=== PATIENT | female | born 1980 | race Caucasian/White ===

== ENCOUNTER 2018-08-07 22:20 | Inpatient (IN) | payer MEDICARE, MEDICAID, SELFPAY ==
[2018-08-07 23:00] VITALS: BP 131/62; PULSE 108; RESP 24; TEMP 36.9; O2SAT 98
--- NOTE | 2018-08-07 23:19 | PC.NURSE ---
2250 - Pt to room transfer to bed via slider board. Alert oriented. Oriented to room and routine. IVF and gtt stopped upon arrival, (incompatible tubing) BG check 95. Pt denies s/s of hypoglycemia. Not yet. MACHINE ATTENDANT, Deandra, notified of pt arrival. Pt connected to granite cutter. Tachycardic in the 110's. IV to left foot and double lumen PICC to RUE. Call light in reach.
[2018-08-07] MEDS: DEXTROSE 50 % IN WATER 25 GM/50 ML SYRINGE IV (23:35)
--- NOTE | 2018-08-07 23:47 | PM.HP.1 ---
History of Present Illness Date Patient Seen: 08/07/18 Time Patient Seen: 23:47 Chief complaint: DKA Narrative: HPI is obtained via direct patient interview. The patient is a 38 year old female w/ PMHx of DM 1T, diabetic neuropathy, Grave's disease (s/p total thyroidectomy), hypothyroidism, SVT (s/p ablation), CHB (s/p PPM implantation, 2017), CHF, dyslipidemia, prior h/o PE/DVT, GERD, psychiatric illness (anxiety, depression, PTSD). Patient presents as transfer from [facility]. Patient presented to the outside facility earlier in the day w/ complaints of generalized malaise, fatigue, nausea, vomiting (12+ times), and abdominal discomfort. Associated symptoms of tachypnea and dizziness / lightheadedness with position change. Patient felt she was in DKA. Repots symptoms to be similar to prior episodes of DKA. Symptoms onset is acute, initially noted 3 days ago by report. Symptoms progressively worsening. Reports neglecting self in an effort to take care of her father who recently returned home from prolonged illness / rehab. Denies fever, chills, confusion / disorientation, change in vision, URI symptoms, or CP. Reports being diagnosed with a tooth infection 2-3 weeks ago for which she was prescribed a course of clindamycin. [facility] presentation and work-up Labs, 08/07 @ 1530 WBC 8.2 Hgb 13.1 Hct 39.6 Plt Na 129 K 4.9 Cl 95 Ca 8.5 CO2 10 AG 24 BUN 18 Cr 1.2 GFR 50 GLU 471 AST 19 ALT 16 Alk Phos 168 T. Bili 2.0 Lipase 20 Trop 0.04 CXR, 08/07/2018 @ 2024. No focal opacities. No pleural effusion. No pneumothorax. Cardiomediastinal contour is normal. Right PICC w/ tip over SVC. EKG, A-V paced rhythm (rate 109) Treated w/ (prior to transfer) 2L NS, insulin Patient was a difficult stick, PICC line was placed on 08/07/2018. Patient History Medical History (Updated 08/08/18 @ 00:46 by BOLA Reyes) Anxiety and depression (Chronic) Diabetic neuropathy (Chronic) Pacemaker (Chronic) Post-surgical hypothyroidism (Chronic) Type I diabetes mellitus (Chronic) History of DVT (deep vein thrombosis) (Resolved) History of pericarditis (Resolved) History of pulmonary embolism (Resolved) SVT (supraventricular tachycardia) (Resolved) Surgical History (Updated 08/08/18 @ 00:46 by BOLA Reyes) History of appendectomy (Resolved) History of cholecystectomy (Resolved) History of repair of hiatal hernia (Resolved) History of right oophorectomy (Resolved) Social History household members: family alcohol intake: former Family & Social History Social History: Disabled / does not work. Lives with father. Father's primary caregiver. No children. Tobacco & Substance use: THC use 2-3 times per week. Meds Home Medications Medication Instructions Recorded Confirmed Type Lantus U-100 Insulin 32 unit SQ QDAY #0 09/26/15 08/08/18 History atorvastatin [Lipitor] 80 mg PO QDAY #0 09/26/15 08/08/18 History lisinopril 10 - 20 mg PO BID #0 09/26/15 08/08/18 History lorazepam 0.5 - 1 mg PO Q6HP PRN #0 09/26/15 08/08/18 History venlafaxine [Effexor XR] 150 mg PO QDAY #0 09/26/15 08/08/18 History Basaglar KwikPen U-100 Insulin 25 unit SQ BID #0 04/24/16 08/08/18 History levothyroxine [Levoxyl] 250 mcg PO QDAY #0 04/25/16 08/08/18 History Apidra SoloStar U-100 Insulin 15 unit SQ TID #0 10/08/16 08/08/18 History Eliquis 5 mg PO BID #0 10/08/16 08/08/18 History Lantus U-100 Insulin 20 unit SQ QPM #0 10/08/16 08/08/18 History Novolog PenFill U-100 Insulin SLIDE #0 10/08/16 History amitriptyline 50 mg PO HS #0 10/08/16 08/08/18 History digoxin [Lanoxin] 0.25 mg PO QDAY #0 10/08/16 08/08/18 History furosemide 80 mg PO QDAY #0 10/08/16 08/08/18 History gabapentin [Neurontin] 600 mg PO Q8H #0 10/08/16 08/08/18 History metoprolol succinate 100 mg PO BID #0 10/08/16 08/08/18 History spironolactone 25 mg QDAY #0 10/08/16 08/08/18 History Allergies Allergy/AdvReac Type Severity Reaction Status Date / Time trimethoprim [From BACTRIM] Allergy Severe Difficulty Verified 08/08/18 02:31 Breathing amoxicillin [AMOXICILLIN] Allergy Intermediate Difficulty Verified 08/08/18 00:46 Breathing sulfamethoxazole Allergy Intermediate Difficulty Verified 08/08/18 00:46 [From BACTRIM] Breathing adhesive tape [ADHESIVE TAPE] Allergy Mild Verified 08/08/18 02:33 oxycodone [OXYCODONE] Allergy Mild Vomiting Verified 08/08/18 00:46 promethazine [PROMETHAZINE] Allergy Mild Vomiting Verified 08/08/18 02:34 Penicillins [PENICILLINS] Allergy Unknown Verified 08/08/18 02:35 Review of Systems Review of Systems All systems reviewed & are unremarkable except as noted in HPI and below Exam Narrative Exam Narrative: Constitutional: NAD Neurologic: AOx3, no focal neurological deficits Head: NC, AT Eyes: PERRL, EOMI, Ears: external ears normal, no otorrhea Nose: external nose normal, no rhinorrhea or epistaxis Throat: DRY MM, oropharynx w/o exudate Neck: no masses, lymphadenopathy, or JVD Chest / Respiratory: equal chest rise, unlabored respiratory effort, no tachypnea, diminished b/l Heart / CV: S1S2, tachycardic on the monitor (rate 116) Abdomen / GI: round, NT, ND, + BS, no organomegaly : no suprapubic tenderness, no CVA Peripheral / Vascular: warm to touch, DP and PT pulses palpable, no edema Musc: full ROM of upper and lower extremities, adequate muscle tone and bulk Skin: Intertrigo present Objective Labs Result Diagrams: 08/08/18 00:15 08/07/18 22:50 Assessment & Plan Assessment & Plan narrative: Patient being transferred for DKA, however on arrival she was noted to be hypoglycemic with blood glucose in the 30s. DKA, acute, present on admission, active - H/O DM 1T w/ suspected poor adherence to prescribed treatment. Check A1C. - stat labs... cbc bmp mag, revealed resolved AG and now hypoglycemia Hypoglycemia, symptomatic, acute, present on admission, active - tx w/ D50, initially improved, then downward trending - started on D5 1/2 NS at 50 - continue Q1H glucose checks - resume HADOOP INFRASTRUCTURE ARCHITECT regimen of lantus 32 units BID and start on SSI - replete electrolyte abnormalities - IVF 1/2 NS HFrEF 35-40% per echo 04/2016, chronic condition, present on admission, active - HADOOP INFRASTRUCTURE ARCHITECT regimen consists of a metoprolol, lisinopril, Lasix, and spironolactone. - Resume BB and ACEi. Hold lasix and spironolactone, to be restarted when DKA resolves Surgical hypothyroidism, chronic condition, present on admission, active - check TSH - resume HADOOP INFRASTRUCTURE ARCHITECT levothyroxine H/o CHB, s/p PPM implant, chronic condition, present on admission, controlled Hyperlipidemia, chronic condition, present on admission, active - resume atorvastatin per HADOOP INFRASTRUCTURE ARCHITECT regimen Diabetic neuropathy, chronic condition, present on admission, active HADOOP INFRASTRUCTURE ARCHITECT on amitriptyline 50 mg QHS and gabapentin 600 mg TID - Hold amitriptyline. Resume gabapentin per PT regimen. Past h/o PE and DVT, at present time not anticoagulated. Previously was on eliquis. Full Code. Mother Caitlin Ruiz is the proxy decision maker (lives out of state). Home med reviewed and reconciled VT prophylaxis with SQ heparin
--- NOTE | 2018-08-07 23:53 | P.HP_ITS ---
History of Present Illness Date Patient Seen: 08/07/18 Time Patient Seen: 23:47 Chief complaint: DKA Narrative: HPI is obtained via direct patient interview. The patient is a 38 year old female w/ PMHx of DM 1T, diabetic neuropathy, Grave's disease (s/p total thyroidectomy), hypothyroidism, SVT (s/p ablation), CHB (s/p PPM implantation, 2017), CHF, dyslipidemia, prior h/o PE/DV T, GERD, psychiatric illness (anxiety, depression, PTSD). Patient presents as transfer from [facility]. Patient presented to the outside facility earlier in the day w/ complaints of generalized malaise, fatigue, nausea, vomiting (12+ times), and abdominal discomfort. Associated symptoms of tachypnea and dizziness / lightheadedness with position change. Patient felt she was in DKA. Repots symptoms to be similar to prior episodes of DKA. Symptoms onset is acute, initially noted 3 days ago by report. Symptoms progressively worsening. Reports neglecting self in an effort to take care of her father who recently returned home from prolonged illness / rehab. Denies fever, chills, confusion / disorientation, change in vision, URI symptoms, or CP. Reports being diagnosed with a tooth infection 2-3 weeks ago for which she was prescribed a course of clindamycin. [facility] presentation and work-up Labs, 08/07 @ 1530 WBC 8.2 Hgb 13.1 Hct 39.6 Plt Na 129 K 4.9 Cl 95 Ca 8.5 CO2 10 AG 24 BUN 18 Cr 1.2 GFR 50 GLU 471 AST 19 ALT 16 Alk Phos 168 T. Bili 2.0 Lipase 20 Trop 0.04 CXR, 08/07/2018 @ 2024. No focal opacities. No pleural effusion. No pneumothor ax. Cardiomediastinal contour is normal. Right PICC w/ tip over SVC. EKG, A-V paced rhythm (rate 109) Treated w/ (prior to transfer) 2L NS, insulin Patient was a difficult stick, PICC line was placed on 08/07/2018. Patient History Medical History (Updated 08/08/18 @ 00:46 by BOLA Reyes) Anxiety and depression (Chronic) Diabetic neuropathy (Chronic) Pacemaker (Chronic) Post-surgical hypothyroidism (Chronic) Type I diabetes mellitus (Chronic) History of DVT (deep vein thrombosis) (Resolved) History of pericarditis (Resolved) History of pulmonary embolism (Resolved) SVT (supraventricular tachycardia) (Resolved) Surgical History (Updated 08/08/18 @ 00:46 by BOLA Reyes) History of appendectomy (Resolved) History of cholecystectomy (Resolved) History of repair of hiatal hernia (Resolved) History of right oophorectomy (Resolved) Social History household members: family alcohol intake: former Family & Social History Social History: Disabled / does not work. Lives with father. Father's primary caregiver. No children. Tobacco & Substance use: THC use 2-3 times per week. Meds Home Medications Medication Instructions Recorded Confirmed Type Lantus U-100 Insulin 32 unit SQ QDAY #0 09/26/15 08/08/18 History atorvastatin [Lipitor] 80 mg PO QDAY #0 09/26/15 08/08/18 History lisinopril 10 - 20 mg PO BID #0 09/26/15 08/08/18 History lorazepam 0.5 - 1 mg PO Q6HP PRN #0 09/26/15 08/08/18 History venlafaxine [Effexor XR] 150 mg PO QDAY #0 09/26/15 08/08/18 History Basaglar KwikPen U-100 Insulin 25 unit SQ BID #0 04/24/16 08/08/18 History levothyroxine [Levoxyl] 250 mcg PO QDAY #0 04/25/16 08/08/18 History Apidra SoloStar U-100 Insulin 15 unit SQ TID #0 10/08/16 08/08/18 History Eliquis 5 mg PO BID #0 10/08/16 08/08/18 History Lantus U-100 Insulin 20 unit SQ QPM #0 10/08/16 08/08/18 History Novolog PenFill U-100 Insulin SLIDE #0 10/08/16 History amitriptyline 50 mg PO HS #0 10/08/16 08/08/18 History digoxin [Lanoxin] 0.25 mg PO QDAY #0 10/08/16 08/08/18 History furosemide 80 mg PO QDAY #0 10/08/16 08/08/18 History gabapentin [Neurontin] 600 mg PO Q8H #0 10/08/16 08/08/18 History metoprolol succinate 100 mg PO BID #0 10/08/16 08/08/18 History spironolactone 25 mg QDAY #0 10/08/16 08/08/18 History Allergies Allergy/AdvReac Type Severity Reaction Status Date / Time trimethoprim [From BACTRIM] Allergy Severe Difficulty Verified 08/08/18 02:31 Breathing amoxicillin [AMOXICILLIN] Allergy Intermediate Difficulty Verified 08/08/18 00:46 Breathing sulfamethoxazole Allergy Intermediate Difficulty Verified 08/08/18 00:46 [From BACTRIM] Breathing adhesive tape [ADHESIVE TAPE] Allergy Mild Verified 08/08/18 02:33 oxycodone [OXYCODONE] Allergy Mild Vomiting Verified 08/08/18 00:46 promethazine [PROMETHAZINE] Allergy Mild Vomiting Verified 08/08/18 02:34 Penicillins [PENICILLINS] Allergy Unknown Verified 08/08/18 02:35 Review of Systems Review of Systems All systems reviewed & are unremarkable except as noted in HPI and below Exam Narrative Exam Narrative: Constitutional: NAD Neurologic: AOx3, no focal neurological deficits Head: NC, AT Eyes: PERRL, EOMI, Ears: external ears normal, no otorrhea Nose: external nose normal, no rhinorrhea or epistaxis Throat: DRY MM, oropharynx w/o exudate Neck: no masses, lymphadenopathy, or JVD Chest / Respiratory: equal chest rise, unlabored respiratory effort, no tachypnea, diminished b/l Heart / CV: S1S2, tachycardic on the monitor (rate 116) Abdomen / GI: round, NT, ND, + BS, no organomegaly : no suprapubic tenderness, no CVA Peripheral / Vascular: warm to touch, DP and PT pulses palpable, no edema Musc: full ROM of upper and lower extremities, adequate muscle tone and bulk Skin: Intertrigo present Objective Labs Result Diagrams: 08/08/18 00:15 08/07/18 22:50 Assessment & Plan Assessment & Plan narrative: Patient being transferred for DKA, however on arrival she was noted to be hypoglycemic with blood glucose in the 30s. DKA, acute, present on admission, active - H/O DM 1T w/ suspected poor adherence to prescribed treatment. Check A1C. - stat labs... cbc bmp mag, revealed resolved AG and now hypoglycemia Hypoglycemia, symptomatic, acute, present on admission, active - tx w/ D50, initially improved, then downward trending - started on D5 1/2 NS at 50 - continue Q1H glucose checks - resume RESOURCE MANAGER regimen of lantus 32 units BID and start on SSI - replete electrolyte abnormalities - IVF 1/2 NS HFrEF 35-40% per echo 04/2016, chronic condition, present on admission, active - RESOURCE MANAGER regimen consists of a metoprolol, lisinopril, Lasix, and spironolactone. - Resume BB and ACEi. Hold lasix and spironolactone, to be restarted when DKA resolves Surgical hypothyroidism, chronic condition, present on admission, active - check TSH - resume RESOURCE MANAGER levothyroxine H/o CHB, s/p PPM implant, chronic condition, present on admission, controlled Hyperlipidemia, chronic condition, present on admission, active - resume atorvastatin per RESOURCE MANAGER regimen Diabetic neuropathy, chronic condition, present on admission, active RESOURCE MANAGER on amitriptyline 50 mg QHS and gabapentin 600 mg TID - Hold amitriptyline. Resume gabapentin per PT regimen. Past h/o PE and DVT, at present time not anticoagulated. Previously was on eliquis. Full Code. Mother Caitlin Ruiz is the proxy decision maker (lives out of state). Home med reviewed and reconciled VT prophylaxis with SQ heparin
[2018-08-08] VITALS (22 sets, daily range): BP systolic 95–200; BP diastolic 43–87; PULSE 95–125; RESP 14–36; TEMP 36.1–37.1; O2SAT 98–100; BMI 38.4
[2018-08-08 00:08] LABS: Pregnancy Test Serum,Qual Negative (Negative)
[2018-08-08 00:10] LABS: Magnesium 1.7 mg/dL (1.6-2.3)
[2018-08-08 00:11] LABS: Alanine Aminotransferase 10 IU/L (9-52); Albumin 3.4 g/dL (3.5-5.0); Alkaline Phosphatase 197 U/L (38-126); Aspartate Aminotransferase 22 IU/L (14-36); Bilirubin Total 0.5 mg/dL (0.2-1.3); Blood Urea Nitrogen 14 mg/dL (7-17); Calcium 8.5 mg/dL (8.4-10.2); Carbon Dioxide 22 mmol/L (22-32); Chloride 110 mmol/L (98-107); Estimated Glomerular Filt Rate > 60.0 mL/min (>60); Globulin 3.5 g/dL (1.7-4.1); Potassium 3.2 mmol/L (3.4-5.1); Sodium 141 mmol/L (137-145); Total Protein 6.9 g/dL (6.3-8.2)
[2018-08-08 00:24] LABS: HEMOLYSIS 42 (0-50)
[2018-08-08 00:26] LABS: Glucose 33 mg/dL (70-100)
[2018-08-08 00:27] LABS: Phosphorous 0.8 mg/dL (2.5-4.5)
[2018-08-08 00:33] LABS: Hemoglobin 12.4 g/dL (12.0-16.0); Mean Corpuscular HGB Conc 34.4 % (30-36); Mean Corpuscular Hemoglobin 32.3 PG (26-34); Mean Corpuscular Volume 93.8 fL (80-100); Platelet Count 236 X10^3/uL (150-400); Red Blood Cell Count 3.84 X10^6/uL (4.0-5.2); Red Cell Distribution Width 13.6 % (11.6-14.8); White Blood Cell Count 12.5 X10^3/uL (4.5-11.0)
[2018-08-08 00:38] LABS: Add Manual Diff / Slide Review YES
[2018-08-08 00:51] LABS: Neutrophils Absolute Manual 9375 /uL (3000-5900); RBC Morphology Normal Morphology; Total Cells Counted 100
[2018-08-08 00:54] LABS: Platelet Clumps 0
[2018-08-08] MEDS: ONDANSETRON 4 MG/2 ML INJ IV ×2 (01:42→07:58)
[2018-08-08] MEDS: DEXTROSE 5%-0.45% NS 1,000 ML 50 ML IV (01:50)
[2018-08-08] MEDS: POTASSIUM PHOSPHATE 10 MMOL in SODIUM CHLORIDE 0.9% 1,000 ML 100 MMOL IV (02:18)
[2018-08-08] MEDS: POTASSIUM CHLORIDE 40 MEQ in SODIUM CHLORIDE 0.9% 500 ML 130 ML IV (02:18)
[2018-08-08] MEDS: METOCLOPRAMIDE 10 MG/2 ML INJ IV (05:23)
[2018-08-08 05:43] LABS: Urine Amphetamines Negative (Negative); Urine Barbiturates Negative (Negative); Urine Benzodiazepines Negative (Negative); Urine Cocaine Negative (Negative); Urine MDMA Negative (Negative); Urine Methadone Negative (Negative); Urine Methamphetamines Negative (Negative); Urine Morphine/Opi cutoff 2000 Negative (Negative); Urine Oxycodone Negative (Negative); Urine Phencyclidine Negative (Negative); Urine Tetrahydrocannabinol Negative (Negative); Urine Tricyclic Antidepressant Negative (Negative)
[2018-08-08 06:24] LABS: HCO3 ABG 7 mmol/L (22-26); Oxygen Saturation ABG 99 % (95-100); PCO2 ABG 16.6 mmHg (35-45); PO2 ABG 134 mmHg (80-100); TCO2 ABG 8 mmol/L (21-31); pH ABG 7.24 (7.35-7.45)
[2018-08-08 06:25] LABS: Fractionated Inspired Oxygen 21
[2018-08-08] MEDS: SODIUM CHLORIDE 0.9% 1,000 ML 1000 ML IV (06:41)
[2018-08-08 07:11] LABS: Add Manual Diff / Slide Review NO; Basophils Absolute Auto 100 /uL (0-100); Basophils Percent Auto 0.7 % (0-2); Eosinophils Absolute Auto 0 /uL (0-450); Eosinophils Percent Auto 0.3 % (2-4); Hematocrit 39.4 % (36-46); Hemoglobin 12.8 g/dL (12.0-16.0); Lymphocytes Absolute Auto 900 /uL (1100-4500); Mean Corpuscular HGB Conc 32.6 % (30-36); Mean Corpuscular Hemoglobin 32.4 PG (26-34); Mean Corpuscular Volume 99.6 fL (80-100); Monocytes Absolute Auto 500 /uL (0-900); Monocytes Percent Auto 6.9 % (3-14); Neutrophils Absolute Auto 6100 /uL (1500-7000); Neutrophils Percent Auto 80.1 % (50-75); Platelet Count 285 X10^3/uL (150-400); Red Blood Cell Count 3.96 X10^6/uL (4.0-5.2); Red Cell Distribution Width 14.3 % (11.6-14.8); White Blood Cell Count 7.7 X10^3/uL (4.5-11.0)
[2018-08-08 07:22] LABS: BUN Creatinine Ratio 18.6 (6-22); Blood Urea Nitrogen 13 mg/dL (7-17); Calcium 7.9 mg/dL (8.4-10.2); Chloride 109 mmol/L (98-107); Estimated Glomerular Filt Rate > 60.0 mL/min (>60); HEMOLYSIS < 15 (0-50); Magnesium 1.7 mg/dL (1.6-2.3); Phosphorous 3.2 mg/dL (2.5-4.5); Potassium 5.3 mmol/L (3.4-5.1); Sodium 139 mmol/L (137-145)
[2018-08-08 07:31] LABS: Carbon Dioxide 7 mmol/L (22-32); Glucose 550 mg/dL (70-100)
[2018-08-08] MEDS: SODIUM CHLORIDE 0.9% 1,000 ML 500 ML IV ×2 (08:02→10:58)
[2018-08-08 08:12] LABS: WBC Urine None Seen (0-5/HPF)
[2018-08-08 08:13] LABS: Appearance Urine UA CLEAR; Bilirubin Urine UA NEGATIVE (NEGATIVE); Color Urine UA YELLOW; Glucose Urine UA 1+ g/dL (Negative); Ketones Urine UA 3+ (NEGATIVE); Leukocyte Esterase Urine UA NEGATIVE (NEGATIVE); Nitrite Urine UA NEGATIVE (Negative); Occult Blood Urine UA TRACE-LYSED (Negative); Protein Urine UA TRACE (Negative); Urobilinogen Urine UA 0.2 E.U./dL (0.2)
[2018-08-08] MEDS: INSULIN REGULAR, HUMAN 100 UNIT in SODIUM CHLORIDE 0.9% 100 ML 15.2 ML IV (08:18)
[2018-08-08 08:26] LABS: Bacteria Urine Occasional (0-1); Culture Indicated Urine Cult Not Indicated; RBC Urine 0-1/HPF (0-5/HPF)
[2018-08-08 08:45] LABS: Hemoglobin A1C% w Est Avg Glu 10.9 % (4.0-6.0)
[2018-08-08] MEDS: MORPHINE 2 MG/ML INJ IV ×2 (09:18→14:20)
--- NOTE | 2018-08-08 09:18 | PC.NURSE ---
0900- Reported pt with trending high BPs last check 200/82, unable to take PO r/t nausea and abd pain/cramping, reported zofran/reglan given, reported UA results, reported pt with RR 40s c/o shortness of breath, reported pt c/o anxiety. Orders received. Per MD, pt may take meds with sips.
--- NOTE | 2018-08-08 09:22 | DI.CT.S_ITS ---
PROCEDURE: CT ABDOMEN PELVIS W CON INDICATIONS: Lower abdominal pain, DKA TECHNIQUE: After the administration of oral and intravenous contrast, 5 mm thick sections acquired from the diaphragms to the symphysis. 5 mm thick coronal and sagittal reformats were performed. For radiation dose reduction, the following was used: automated exposure control, adjustment of mA and/or kV according to patient size. COMPARISON: [facility], CT, ABDOMEN/PELVIS WITH CONTRAST, 09/26/2015, 14:00. [facility], CT, CT ABDOMEN PELVIS WITH CONTRAST, 04/09/2018, 3:45. FINDINGS: Image quality: Diagnostic. ABDOMEN: Lung bases: Lung bases are clear. Heart size is normal. Cardiac pacer/defibrillator wires are evident. Solid organs: Liver is borderline enlarged. There is a rounded area of low attenuation identified involving the left hepatic lobe along the falciform ligament with mild bulbous appearance. This appearance is similar to multiple prior examinations. The patient has had a prior cholecystectomy. The common bile duct is measuring approximately 6 mm in diameter. Pancreas enhances normally. Spleen is normal in size and enhancement. No adrenal nodules. Kidneys are normal in size and enhancement, without hydronephrosis. No definite renal calculi are appreciated. Peritoneum and bowel: There is a small hiatal hernia with mild thickening of the distal esophageal wall. The stomach is otherwise unremarkable. The small bowel loops are nondilated. The appendix is not clearly seen. Moderate residual stool is identified within the colon. There is no free fluid, loculated fluid collection or free air. Nodes and vessels: No retroperitoneal or mesenteric adenopathy. Aorta and inferior vena cava are normal in caliber. There is mild aortic atherosclerosis. Bones: No acute fracture or suspicious osseous lesion is identified. PELVIS: Genitourinary: Bladder wall thickness is normal. The uterus is moderately heterogeneous and probably contains multiple uterine fibroids. Right ovary is not definitely seen and may be located adjacent to the uterus. The left ovary appears to be enlarged related to a probable ovarian cyst that may measure up to approximately 2.5 cm in diameter. Miscellaneous: No inguinal hernias or adenopathy. No free fluid or loculated fluid collection is evident within the pelvis. There is no free air. Bones: No suspicious bony lesions. No acute pelvic fractures are identified. IMPRESSION: 1. No definite acute abnormality within the abdomen or pelvis. 2. No bowel obstruction. There may be constipation. 3. Low attenuation lesion within the left hepatic lobe probably represents a focal area of fatty infiltration. A contrast-enhanced liver MRI is recommended to exclude other abnormalities, which may be performed on an outpatient basis. 4. Enlarged heterogeneous left ovary may contain a cyst. Pelvic ultrasound may be helpful for further evaluation. 5. Apparent uterine fibroids. Dictated by: Richard Valderrama M.D. on 08/08/2018 at 13:47 Approved by: Richard Valderrama M.D. on 08/08/2018 at 13:54
[2018-08-08] MEDS: NYSTATIN POWDER 30 GM 1 APPLIC TOP ×2 (09:23→21:04)
[2018-08-08] MEDS: INSULIN REGULAR 100 UNIT/ML 3 ML VIAL 10 UNIT IV (09:30)
[2018-08-08] MEDS: HEPARIN 5,000 UNIT/ML VIAL 5000 UNIT SUBCUT ×2 (09:33→21:05)
[2018-08-08] MEDS: LISINOPRIL 10 MG TABLET PO ×2 (09:35→21:06)
[2018-08-08 10:53] LABS: BUN Creatinine Ratio 16.3 (6-22); Blood Urea Nitrogen 13 mg/dL (7-17); Calcium 7.9 mg/dL (8.4-10.2); Chloride 115 mmol/L (98-107); Estimated Glomerular Filt Rate > 60.0 mL/min (>60); Glucose 347 mg/dL (70-100); HEMOLYSIS 25 (0-50); Potassium 4.2 mmol/L (3.4-5.1); Sodium 144 mmol/L (137-145)
[2018-08-08] MEDS: LORazepam 1 MG TABLET PO (11:04)
[2018-08-08 11:09] LABS: Carbon Dioxide < 5 mmol/L (22-32)
[2018-08-08 11:58] LABS: HCO3 ABG 5 mmol/L (22-26); PCO2 ABG 14.7 mmHg (35-45); PO2 ABG 135 mmHg (80-100); TCO2 ABG 6 mmol/L (21-31)
[2018-08-08 11:59] LABS: Fractionated Inspired Oxygen 21; Oxygen Saturation ABG 98 % (95-100); pH ABG 7.15 (7.35-7.45)
[2018-08-08] MEDS: DEXTROSE 5%-0.45% NS 1,000 ML 152.3 ML IV (12:00)
[2018-08-08] MEDS: SODIUM BICARB 8.4% VIAL 150 MEQ in DEXTROSE 5% WATER 1,000 ML 100 MEQ IV (12:27)
[2018-08-08 12:48] LABS: Free T4, Direct Thyroxine 0.85 ng/dL (0.78-2.19)
[2018-08-08] MEDS: SODIUM CHLORIDE 0.45% 1,000 ML 152 ML IV (13:06)
--- NOTE | 2018-08-08 15:00 | CM.DANOTE ---
Discharge Planning/Care Management DCP: assessment: initiated: Case received this morning, EMR reviewed and noted RN who admitted pt last evening had indicated need for a adoption social worker consult. (this is noted only in her assessment, did not carry over to referral). Documentation revealed that pt is a 38 year old female who admitted directly from [facility] last night to care of the hospitalist team. She has complex medical and psychiatric comorbidities and Dr. Hartley noted she is currenty very ill. Discussed case with Dr. Hartely and KASIA Andino and both agreed that a transfer to this case to the DCP/social work team is appropriate. Thu plans to check in on pt and follow tomorrow. CM Discharge Assessment Start: 08/08/18 14:58 Freq: Status: Active Protocol: Document 08/08/18 14:58 ITV (Rec: 08/08/18 15:00 ITV [id number]) Discharge Planning Assessment Advance Directives? No Advance Directives on File No History Provided By Medical Record Prior Living Arrangements House Caregiver for Another Yes: her father just got home from [facility] and lives with her Review Status In Process
[2018-08-08 15:04] LABS: BUN Creatinine Ratio 17.1 (6-22); Blood Urea Nitrogen 12 mg/dL (7-17); Carbon Dioxide 13 mmol/L (22-32); Chloride 114 mmol/L (98-107); Estimated Glomerular Filt Rate > 60.0 mL/min (>60); Glucose 88 mg/dL (70-100); HEMOLYSIS 15 (0-50); Potassium 3.9 mmol/L (3.4-5.1); Sodium 138 mmol/L (137-145)
--- NOTE | 2018-08-08 15:05 | PC.NURSE ---
Am shift Pt diaphoretic and c/o ABD pain 7/10 at start of shift. Suprapubic pain, bladder scanned for 352mls, Pt was able to void while up to BSC for extended amount of time. Ua sent. Skin assessment with signifcant pain to pannus and below breasts, odorous, Nystatin order obtained. Insulin gtt per DKA protocol, see titration. Hypertensive, PRN lobatalol order obtained, PRN morphine for pain. Dual PICC to [facility]. IVF per protocol. Hourly blood sugar checks. Pt 1PA to BSC, tremulous, and unsteady. I am a little lightheaded Using call light appropriately. Tachepnic, RR 35 BPM, Spo2 96%+ on RA, Pt has c/o SOB with any exertion. Attempted CT scan, Pt not able to tolerate, update to Dr Hartley, we will attempt this afternoon. 1330-ABD Obtained, 1400-Pt has improved with PO Ativan and Morphine, CBGs improved, see flow sheet, 102 and 105 prior to saline locking for CT scan, completed @1430. Pt tolerated this scan significantly better than this AM. RR improved, ~20 BPM. Lungs remain clear but dim, SBA-1PA to BSC. BP stable, 116/53 HR 102. Reports pain improved. Continue with monitoring per protocol. Insulin gtt @ 2units/hr.
[2018-08-08] MEDS: LEVOTHYROXINE 125 MCG TABLET 250 MCG PO (15:23)
[2018-08-08] MEDS: GABAPENTIN 600 MG TABLET PO ×2 (15:25→23:55)
[2018-08-08] MEDS: FLUCONAZOLE 150 MG TABLET PO (15:26)
--- NOTE | 2018-08-08 16:52 | PM.PN.1 ---
Subjective Date Patient Seen: 08/08/18 Interval history: Daniela Curtis is a 38-year-old female with past medical history significant for diabetes mellitus type 1, diabetic neuropathy, Graves disease status post total thyroidectomy with secondary hypothyroidism, SVT status post ablation, complete heart block status post pacemaker implantation 2016, CHF, dyslipidemia, prior history of PE/DVT, GERD, psychiatric illness with anxiety, depression and PTSD who was a direct transfer from [facility] with complaints of generalized malaise, fatigue, nausea, vomiting, and abdominal discomfort and was found to be in DKA. Patient is resting in bed and appears and moderate distress. She is tachypneic due to DKA and compensation for metabolic acidosis. Her anion gap was 24. She continues to be severely acidotic and DKA protocol re-initiated. Her respiratory rate is in the 30s to 40s. She complains of abdominal pain and her suprapubic area. Urinalysis performed and does not appear infected. Due to amount of distress ordered CT abdomen and pelvis with and without contrast which demonstrated possible constipation, an ovarian cyst, and uterine fibroids. She has been intermittently nauseous likely related to DKA. She denies headache, chest pain, shortness of breath, fever, chills, dysuria, diarrhea or constipation. Exam Vital Signs (past 8 hours): - 08/08/18 09:00 08/08/18 09:35 08/08/18 10:00 Temperature Pulse Rate 122 H 120 H 119 H Respiratory Rate 18 25 H Blood Pressure 200/82 H 180/87 H 160/80 H Pulse Oximetry 98 100 08/08/18 11:00 08/08/18 12:00 08/08/18 13:00 Temperature 98.8 F Pulse Rate 125 H 119 H 111 H Respiratory Rate 25 H 36 H 22 Blood Pressure 164/81 H 156/76 H 115/56 L Pulse Oximetry 100 100 99 08/08/18 14:00 08/08/18 15:00 08/08/18 16:00 Temperature Pulse Rate 112 H 99 H 103 H Respiratory Rate 17 Blood Pressure 110/55 L 95/43 L 116/58 L Pulse Oximetry 99 Oxygen Delivery Method Room Air Oxygen Flow Rate 0 Narrative Exam Narrative: General: Middle aged woman in moderate distress, well-developed, well-nourished, appears uncomfortable. HEENT: Normocephalic, atraumatic. External ears without defect. Pupils equal, round, and reactive to light. Anicteric sclerae, moist conjunctivae, and no lid lag. Neck: Supple with full range of motion. No jugular venous distension. No lymphadenopathy or thyromegaly. Cardiovascular: Regular rhythm, tachycardic, without murmurs, rubs, or gallops appreciated Pulmonary: Clear to auscultation bilaterally without crackles, wheezes, or rhonchi. Tachypneic with use of accessory muscles. Abdomen: Soft, bowel sounds present, tenderness to palpation in lower quadrant/suprapubic area, nondistended. No hepatosplenomegaly or masses appreciated. Extremities: No clubbing, cyanosis, or edema. Skin: Normal temperature, turgor, and texture; no rash, ulcers, or subcutaneous nodules appreciated. Neurological: Cranial nerves grossly intact. Psychiatric: Unable to assess due to patient condition. Objective Labs Result Diagrams: 08/09/18 04:40 08/09/18 04:40 Labs: Laboratory Results - last 24 hr 08/07/18 08/07/18 08/07/18 05:00 22:50 22:50 WBC RBC Hgb Hct MCV MCH MCHC RDW Plt Count Neut % (Auto) Lymph % (Auto) [place] % (Auto) Eos % (Auto) Baso % (Auto) Neut # (Auto) Lymph # (Auto) [place] # (Auto) Eos # (Auto) Baso # (Auto) Total Counted Seg Neutrophils % Lymphocytes % (Manual) Monocytes % (Manual) Basophils % (Manual) Neutrophils # (Manual) Clumped Platelets Plt Morphology Comment RBC Morphology ABG pH ABG pCO2 ABG pO2 ABG HCO3 ABG Total CO2 ABG O2 Saturation ABG Base Excess FiO2 Sodium 141 Potassium 3.2 L Chloride 110 H Carbon Dioxide 22 BUN 14 Creatinine 0.70 Estimated GFR > 60.0 BUN/Creatinine Ratio 20.0 Glucose 33 L* Hemoglobin A1c Calcium 8.5 Phosphorus 0.8 L* Magnesium 1.7 Total Bilirubin 0.5 AST 22 ALT 10 Alkaline Phosphatase 197 H Total Protein 6.9 Albumin 3.4 L Globulin 3.5 Albumin/Globulin Ratio 1.0 TSH Free T4 0.85 Serum , Qual Urine Color Urine Appearance Urine pH Ur Specific [place] Urine Protein Urine Glucose (UA) Urine Ketones Urine Occult Blood Urine Nitrate Urine Bilirubin Urine Urobilinogen Ur Leukocyte Esterase Urine RBC Urine WBC Urine Bacteria Urine Yeast Ur Culture Indicated? Nasal Screen MRSA (PCR) Urine Opiates Screen Ur Oxycodone Screen Urine Methadone Screen Ur Barbiturates Screen U Tricyclic Antidepress Ur Phencyclidine Scrn Ur Amphetamines Screen U Methamphetamines Scrn Ur MDMA Scrn (Ecstasy) U Benzodiazepines Scrn Urine Cocaine Screen U Marijuana (THC) Screen 08/07/18 08/07/18 08/08/18 22:50 23:40 00:15 WBC 12.5 H RBC 3.84 L Hgb 12.4 Hct 36.0 MCV 93.8 MCH 32.3 MCHC 34.4 RDW 13.6 Plt Count 236 Neut % (Auto) Not Reportable Lymph % (Auto) Not Reportable [place] % (Auto) Not Reportable Eos % (Auto) Not Reportable Baso % (Auto) Not Reportable Neut # (Auto) Lymph # (Auto) Not Reportable [place] # (Auto) Not Reportable Eos # (Auto) Baso # (Auto) Not Reportable Total Counted 100 Seg Neutrophils % 75.0 H Lymphocytes % (Manual) 16.0 L Monocytes % (Manual) 8.0 Basophils % (Manual) 1.0 Neutrophils # (Manual) 9375 H Clumped Platelets 0 Plt Morphology Comment Not Reportable RBC Morphology Normal morphology ABG pH ABG pCO2 ABG pO2 ABG HCO3 ABG Total CO2 ABG O2 Saturation ABG Base Excess FiO2 Sodium Potassium Chloride Carbon Dioxide BUN Creatinine Estimated GFR BUN/Creatinine Ratio Glucose Hemoglobin A1c Calcium Phosphorus Magnesium Total Bilirubin AST ALT Alkaline Phosphatase Total Protein Albumin Globulin Albumin/Globulin Ratio TSH Free T4 Serum , Qual Negative Urine Color Urine Appearance Urine pH Ur Specific [place] Urine Protein Urine Glucose (UA) Urine Ketones Urine Occult Blood Urine Nitrate Urine Bilirubin Urine Urobilinogen Ur Leukocyte Esterase Urine RBC Urine WBC Urine Bacteria Urine Yeast Ur Culture Indicated? Nasal Screen MRSA (PCR) Negative for mrsa Urine Opiates Screen Ur Oxycodone Screen Urine Methadone Screen Ur Barbiturates Screen U Tricyclic Antidepress Ur Phencyclidine Scrn Ur Amphetamines Screen U Methamphetamines Scrn Ur MDMA Scrn (Ecstasy) U Benzodiazepines Scrn Urine Cocaine Screen U Marijuana (THC) Screen 08/08/18 08/08/18 08/08/18 05:17 06:08 06:30 WBC 7.7 RBC 3.96 L Hgb 12.8 Hct 39.4 MCV 99.6 D MCH 32.4 MCHC 32.6 RDW 14.3 Plt Count 285 Neut % (Auto) 80.1 H Lymph % (Auto) 12.0 L [place] % (Auto) 6.9 Eos % (Auto) 0.3 L Baso % (Auto) 0.7 Neut # (Auto) 6100 Lymph # (Auto) 900 L [place] # (Auto) 500 Eos # (Auto) 0 Baso # (Auto) 100 Total Counted Seg Neutrophils % Lymphocytes % (Manual) Monocytes % (Manual) Basophils % (Manual) Neutrophils # (Manual) Clumped Platelets Plt Morphology Comment RBC Morphology ABG pH 7.24 L* ABG pCO2 16.6 L* ABG pO2 134 H ABG HCO3 7 L ABG Total CO2 8 L ABG O2 Saturation 99 ABG Base Excess -20.0 L FiO2 21 Sodium Potassium Chloride Carbon Dioxide BUN Creatinine Estimated GFR BUN/Creatinine Ratio Glucose Hemoglobin A1c Calcium Phosphorus Magnesium Total Bilirubin AST ALT Alkaline Phosphatase Total Protein Albumin Globulin Albumin/Globulin Ratio TSH Free T4 Serum , Qual Urine Color Urine Appearance Urine pH Ur Specific [place] Urine Protein Urine Glucose (UA) Urine Ketones Urine Occult Blood Urine Nitrate Urine Bilirubin Urine Urobilinogen Ur Leukocyte Esterase Urine RBC Urine WBC Urine Bacteria Urine Yeast Ur Culture Indicated? Nasal Screen MRSA (PCR) Urine Opiates Screen Negative Ur Oxycodone Screen Negative Urine Methadone Screen Negative Ur Barbiturates Screen Negative U Tricyclic Antidepress Negative Ur Phencyclidine Scrn Negative Ur Amphetamines Screen Negative U Methamphetamines Scrn Negative Ur MDMA Scrn (Ecstasy) Negative U Benzodiazepines Scrn Negative Urine Cocaine Screen Negative U Marijuana (THC) Screen Negative 08/08/18 08/08/18 08/08/18 06:30 06:30 06:30 WBC RBC Hgb Hct MCV MCH MCHC RDW Plt Count Neut % (Auto) Lymph % (Auto) [place] % (Auto) Eos % (Auto) Baso % (Auto) Neut # (Auto) Lymph # (Auto) [place] # (Auto) Eos # (Auto) Baso # (Auto) Total Counted Seg Neutrophils % Lymphocytes % (Manual) Monocytes % (Manual) Basophils % (Manual) Neutrophils # (Manual) Clumped Platelets Plt Morphology Comment RBC Morphology ABG pH ABG pCO2 ABG pO2 ABG HCO3 ABG Total CO2 ABG O2 Saturation ABG Base Excess FiO2 Sodium 139 Potassium 5.3 H D Chloride 109 H Carbon Dioxide 7 L* BUN 13 Creatinine 0.70 Estimated GFR > 60.0 BUN/Creatinine Ratio 18.6 Glucose 550 H* D Hemoglobin A1c Calcium 7.9 L Phosphorus 3.2 D Magnesium 1.7 Total Bilirubin AST ALT Alkaline Phosphatase Total Protein Albumin Globulin Albumin/Globulin Ratio TSH 14.80 H Free T4 Serum , Qual Urine Color Urine Appearance Urine pH Ur Specific [place] Urine Protein Urine Glucose (UA) Urine Ketones Urine Occult Blood Urine Nitrate Urine Bilirubin Urine Urobilinogen Ur Leukocyte Esterase Urine RBC Urine WBC Urine Bacteria Urine Yeast Ur Culture Indicated? Nasal Screen MRSA (PCR) Urine Opiates Screen Ur Oxycodone Screen Urine Methadone Screen Ur Barbiturates Screen U Tricyclic Antidepress Ur Phencyclidine Scrn Ur Amphetamines Screen U Methamphetamines Scrn Ur MDMA Scrn (Ecstasy) U Benzodiazepines Scrn Urine Cocaine Screen U Marijuana (THC) Screen 08/08/18 08/08/18 08/08/18 06:30 08:00 10:30 WBC RBC Hgb Hct MCV MCH MCHC RDW Plt Count Neut % (Auto) Lymph % (Auto) [place] % (Auto) Eos % (Auto) Baso % (Auto) Neut # (Auto) Lymph # (Auto) [place] # (Auto) Eos # (Auto) Baso # (Auto) Total Counted Seg Neutrophils % Lymphocytes % (Manual) Monocytes % (Manual) Basophils % (Manual) Neutrophils # (Manual) Clumped Platelets Plt Morphology Comment RBC Morphology ABG pH ABG pCO2 ABG pO2 ABG HCO3 ABG Total CO2 ABG O2 Saturation ABG Base Excess FiO2 Sodium 144 Potassium 4.2 Chloride 115 H Carbon Dioxide < 5 L* BUN 13 Creatinine 0.80 Estimated GFR > 60.0 BUN/Creatinine Ratio 16.3 Glucose 347 H D Hemoglobin A1c 10.9 H Calcium 7.9 L Phosphorus Magnesium Total Bilirubin AST ALT Alkaline Phosphatase Total Protein Albumin Globulin Albumin/Globulin Ratio TSH Free T4 Serum , Qual Urine Color Yellow Urine Appearance Clear Urine pH 5.0 Ur Specific [place] 1.020 Urine Protein Trace H Urine Glucose (UA) 1+ H Urine Ketones 3+ H Urine Occult Blood Trace-lysed Urine Nitrate Negative Urine Bilirubin Negative Urine Urobilinogen 0.2 Ur Leukocyte Esterase Negative Urine RBC 0-1/hpf Urine WBC None seen Urine Bacteria Occasional (0-1) Urine Yeast 0-1/hpf Ur Culture Indicated? Cult not indicated Nasal Screen MRSA (PCR) Urine Opiates Screen Ur Oxycodone Screen Urine Methadone Screen Ur Barbiturates Screen U Tricyclic Antidepress Ur Phencyclidine Scrn Ur Amphetamines Screen U Methamphetamines Scrn Ur MDMA Scrn (Ecstasy) U Benzodiazepines Scrn Urine Cocaine Screen U Marijuana (THC) Screen 08/08/18 08/08/18 11:45 14:45 WBC RBC Hgb Hct MCV MCH MCHC RDW Plt Count Neut % (Auto) Lymph % (Auto) [place] % (Auto) Eos % (Auto) Baso % (Auto) Neut # (Auto) Lymph # (Auto) [place] # (Auto) Eos # (Auto) Baso # (Auto) Total Counted Seg Neutrophils % Lymphocytes % (Manual) Monocytes % (Manual) Basophils % (Manual) Neutrophils # (Manual) Clumped Platelets Plt Morphology Comment RBC Morphology ABG pH 7.15 L* ABG pCO2 14.7 L* ABG pO2 135 H ABG HCO3 5 L ABG Total CO2 6 L ABG O2 Saturation 98 ABG Base Excess -24.0 L FiO2 21 Sodium 138 Potassium 3.9 Chloride 114 H Carbon Dioxide 13 L BUN 12 Creatinine 0.70 Estimated GFR > 60.0 BUN/Creatinine Ratio 17.1 Glucose 88 D Hemoglobin A1c Calcium 7.0 L Phosphorus Magnesium Total Bilirubin AST ALT Alkaline Phosphatase Total Protein Albumin Globulin Albumin/Globulin Ratio TSH Free T4 Serum , Qual Urine Color Urine Appearance Urine pH Ur Specific [place] Urine Protein Urine Glucose (UA) Urine Ketones Urine Occult Blood Urine Nitrate Urine Bilirubin Urine Urobilinogen Ur Leukocyte Esterase Urine RBC Urine WBC Urine Bacteria Urine Yeast Ur Culture Indicated? Nasal Screen MRSA (PCR) Urine Opiates Screen Ur Oxycodone Screen Urine Methadone Screen Ur Barbiturates Screen U Tricyclic Antidepress Ur Phencyclidine Scrn Ur Amphetamines Screen U Methamphetamines Scrn Ur MDMA Scrn (Ecstasy) U Benzodiazepines Scrn Urine Cocaine Screen U Marijuana (THC) Screen Assessment & Plan Assessment & Plan narrative: Daniela Curtis is a 38-year-old female with past medical history significant for diabetes mellitus type 1, diabetic neuropathy, Graves disease status post total thyroidectomy with secondary hypothyroidism, SVT status post ablation, complete heart block status post pacemaker implantation 2016, CHF, dyslipidemia, prior history of PE/DVT, GERD, psychiatric illness with anxiety, depression and PTSD who was a direct transfer from [facility] with complaints of generalized malaise, fatigue, nausea, vomiting, and abdominal discomfort and was found to be in DKA. 1. Acute DKA with anion gap metabolic acidosis, secondary to poorly controlled diabetes mellitus type I, present on admission. Active. -History of diabetes mellitus type 1 with suspected poor adherence to prescribed treatment. -Hemoglobin A1c 10.9%. -Anion gap 24. -Re-initiated DKA protocol. Continue to check BMP every 4 hours for electrolyte management. Reinstitute home insulin regimen of Lantus 32 units twice daily, NovoLog 10 units 3 times daily with meals and high-dose correctional scale insulin once anion gap closes. -Initial ABG demonstrated: pH 7.24. PCO2 16.6, PO2 134, HC03 7. Repeat ABG demonstrated: PH 7.15, CO2 14.7, PO2 135, HC03 5. Sodium bicarbonate 150 mEq was initiated in addition to DKA protocol. -Complication of diabetic neuropathy and will continue amitriptyline 50 mg daily at bedtime and gabapentin 600 mg 3 times daily. -Patient complaining of lower abdominal/suprapubic pain and dysuria (1 week ago), however, urinalysis negative for infection. -Due to significant distress ordered CT abdomen and pelvis with contrast which demonstrated constipation probable constipation, uterine fibroids, enlarged heterogeneous left ovary with cyst with recommendation of pelvic ultrasound which will need to be obtained outpatient, and low attenuation lesion within the left hepatic lobe probably represents a focal area of fatty infiltration and may consider contrast-enhanced liver MRI is recommended to exclude other abnormalities, which may be performed on an outpatient basis. 2. Acute symptomatic hypoglycemia, present on admission. Resolved. -Treated with D50, initially improved, then downward trending. Suspect accidental bolus with insulin at [facility] as there is an empty insulin bag of 100 units. -Started on D5 1/2 NS at 50 mL/hr. Patient's blood glucose level was slow to correct and then expediently became hyperglycemic and DKA protocol was re-initiated as above. Patient thought to be brittle diabetic due to lability of blood glucose levels. -Continue blood glucose checks frequently every 1 hour. -Continue to replete electrolyte abnormalities. 3. Ashtyn intertrigo, present on admission. Active. -Started Diflucan 150 mg x3 doses and nystatin powder applied to area twice daily 4. Previous history of HFrEF. -Does not represent acute CHF exacerbation. -Echocardiogram from 04/2018 demonstrated resolution of CHF with EF 60-65% with previous EF 35-40%. -Continue home regimen of metoprolol succinate 100 mg twice daily and lisinopril 20 mg twice daily. Held lasix and spironolactone until DKA resolves. 5. History of Graves disease status post thyroidectomy with secondary hypothyroidism, chronic, present on admission. Stable. -TSH 14.80. Free T4 0.85. -Increase levothyroxine dose from 250 mcg to 275 mcg daily. Will need repeat thyroid function testing in 4-6 weeks. 6. History of complete heart block status post pacemaker implantation, chronic, present on admission. Stable. -Patient is V paced and mildly tachycardic due to DKA. Tachycardia anticipated to resolve once DKA has been completely treated. 7. Hyperlipidemia, chronic, present on admission. Stable. -Continue atorvastatin 80 mg daily. Critical care time spent: 90 minutes. Disposition: Patient likely to discharge in 1-2 days depending on control of blood glucose and treatment of DKA. Quality VTE Deep Vein Thrombosis/Pulmonary Embolism Present on Admission: Yes
[2018-08-08] MEDS: VENLAFAXINE ER 75 MG CAP 150 MG PO (17:16)
[2018-08-08] MEDS: FUROSEMIDE 40 MG TABLET 80 MG PO (17:16)
[2018-08-08] MEDS: SPIRONOLACTONE 25 MG TABLET PO (17:16)
[2018-08-08] MEDS: INSULIN GLARGINE 100 UNIT/ML 3ML PEN 32 UNIT SUBCUT (17:17)
[2018-08-08] MEDS: DIGOXIN 0.25 MG TABLET PO (17:17)
[2018-08-08] MEDS: PANTOPRAZOLE 20 MG TABLET PO (17:46)
--- NOTE | 2018-08-08 18:28 | PC.NURSE ---
Addendum entered by Lia Cook R.N. 08/08/18 21:38: 2100 -Pt set up for shower. Able to provided self care. Take po meds with applesauce. Denies nausea. Reinforced safety and call light use. Call light in reach. Original Note: 1600 - BG 153, insulin gtt at 2 units/hr. Reviewed gtt, diet, IVF, plan of care with Dr. Hartley. Verbal orders obtained. 1720 - Lantus given as ordered, per pt home routine 32 units. BG 143. Insulin gtt remains at 2 units/hr per protocol. Pt denies nausea, however reports being a picky eater. Discussed option. Food provided. 1800 - BG 116, insulin gtt stopped. Pt continues with slow PO intake. Sliding scale coverage document not given. Monitor intake for scheduled 10 units of Novolog. Pt alert, reports feeling fatigued. Sitting at edge of bed for meal. Report increased home/situational stress. Care management consult ordered.
[2018-08-08] MEDS: INSULIN ASPART 100 UNIT/ML INSULN PEN 10 UNIT SUBCUT (19:04)
[2018-08-08] MEDS: ATORVASTATIN 20 MG TABLET 80 MG PO (21:04)
[2018-08-08] MEDS: AMITRIPTYLINE 25 MG TABLET 50 MG PO (21:05)
[2018-08-08] MEDS: METOPROLOL ER 50 MG TABLET 100 MG PO (21:06)
[2018-08-08] MEDS: INSULIN ASPART 100 UNIT/ML INSULN PEN SUBCUT (21:13)
[2018-08-08 23:33] LABS: BUN Creatinine Ratio 12.5 (6-22); Blood Urea Nitrogen 10 mg/dL (7-17); Carbon Dioxide 17 mmol/L (22-32); Chloride 108 mmol/L (98-107); Estimated Glomerular Filt Rate > 60.0 mL/min (>60); Glucose 128 mg/dL (70-100); HEMOLYSIS < 15 (0-50); Potassium 3.4 mmol/L (3.4-5.1); Sodium 137 mmol/L (137-145)
[2018-08-09 04:19] VITALS: BP 140/66; PULSE 97; RESP 16; TEMP 37; O2SAT 98
[2018-08-09] MEDS: MORPHINE 2 MG/ML INJ IV (04:22)
[2018-08-09] MEDS: SODIUM CHLORIDE 0.9% FLUSH 10 ML IV ×2 (05:06→08:23)
[2018-08-09 05:21] LABS: Add Manual Diff / Slide Review NO; Basophils Absolute Auto 100 /uL (0-100); Basophils Percent Auto 0.8 % (0-2); Eosinophils Absolute Auto 0 /uL (0-450); Eosinophils Percent Auto 0.5 % (2-4); Hematocrit 34.2 % (36-46); Hemoglobin 11.7 g/dL (12.0-16.0); Lymphocytes Absolute Auto 1200 /uL (1100-4500); Lymphocytes Percent Auto 17.9 % (25-40); Mean Corpuscular HGB Conc 34.2 % (30-36); Mean Corpuscular Hemoglobin 32.6 PG (26-34); Mean Corpuscular Volume 95.3 fL (80-100); Monocytes Absolute Auto 600 /uL (0-900); Monocytes Percent Auto 8.3 % (3-14); Neutrophils Absolute Auto 4900 /uL (1500-7000); Neutrophils Percent Auto 72.5 % (50-75); Platelet Count 219 X10^3/uL (150-400); Red Blood Cell Count 3.59 X10^6/uL (4.0-5.2); White Blood Cell Count 6.7 X10^3/uL (4.5-11.0)
[2018-08-09 05:23] LABS: Alanine Aminotransferase 18 IU/L (9-52); Albumin Globulin Ratio 0.9 (1.0-2.8); Alkaline Phosphatase 167 U/L (38-126); Aspartate Aminotransferase 28 IU/L (14-36); BUN Creatinine Ratio 17.1 (6-22); Bilirubin Total 0.7 mg/dL (0.2-1.3); Blood Urea Nitrogen 12 mg/dL (7-17); Calcium 6.7 mg/dL (8.4-10.2); Carbon Dioxide 18 mmol/L (22-32); Chloride 107 mmol/L (98-107); Estimated Glomerular Filt Rate > 60.0 mL/min (>60); Globulin 3.3 g/dL (1.7-4.1); Glucose 254 mg/dL (70-100); Magnesium 1.6 mg/dL (1.6-2.3); Sodium 136 mmol/L (137-145); Total Protein 6.3 g/dL (6.3-8.2)
[2018-08-09 05:24] LABS: HEMOLYSIS 85 (0-50)
[2018-08-09 05:25] LABS: Potassium 4.4 mmol/L (3.4-5.1)
[2018-08-09] MEDS: LEVOTHYROXINE 125 MCG TABLET 250 MCG PO (06:12)
[2018-08-09 08:00] VITALS: BP 125/65; PULSE 94; RESP 16; TEMP 36.5; O2SAT 98
[2018-08-09] MEDS: FUROSEMIDE 40 MG TABLET 80 MG PO (08:19)
[2018-08-09] MEDS: GABAPENTIN 600 MG TABLET PO (08:20)
[2018-08-09] MEDS: INSULIN ASPART 100 UNIT/ML INSULN PEN 10 UNIT SUBCUT ×2 (08:20→12:54)
[2018-08-09] MEDS: PANTOPRAZOLE 20 MG TABLET PO (08:20)
[2018-08-09] MEDS: INSULIN ASPART 100 UNIT/ML INSULN PEN SUBCUT (08:20)
[2018-08-09] MEDS: NYSTATIN POWDER 30 GM 1 APPLIC TOP (08:20)
[2018-08-09 08:21] VITALS: PULSE 91
[2018-08-09] MEDS: DIGOXIN 0.25 MG TABLET PO (08:21)
[2018-08-09] MEDS: INSULIN GLARGINE 100 UNIT/ML 3ML PEN 32 UNIT SUBCUT (08:22)
[2018-08-09] MEDS: METOPROLOL ER 50 MG TABLET 100 MG PO (08:22)
[2018-08-09] MEDS: HEPARIN 5,000 UNIT/ML VIAL 5000 UNIT SUBCUT (08:22)
[2018-08-09] MEDS: VENLAFAXINE ER 75 MG CAP 150 MG PO (08:23)
[2018-08-09] MEDS: LISINOPRIL 10 MG TABLET PO (08:23)
[2018-08-09] MEDS: SPIRONOLACTONE 25 MG TABLET PO (08:23)
[2018-08-09] MEDS: FLUCONAZOLE 150 MG TABLET PO (08:35)
--- NOTE | 2018-08-09 11:25 | P.DS_ITS ---
History of Present Illness Date Patient Seen: 08/07/18 Chief complaint: DKA Narrative: Written by Deandra PLAZA: The patient is a 38 year old female w/ PMHx of DM 1T, diabetic neur opathy, Grave's disease (s/p total thyroidectomy), hypothyroidism, SVT (s/p ablation), CHB (s/p PPM implantation, 2017), CHF, dyslipidemia, prior h/o PE/DVT, GERD, psychiatric illness (anxiety, depression, PTSD). Patient presents as transfer from [facility]. Patient presented to the outside facility earlier in the day w/ complaints of generalized malaise, fatigue, nausea, vomiting (12+ times), and abdominal discomfort. Associated symptoms of tachypnea and dizziness / lightheadedness with position change. Patient felt she was in DKA. Repots symptoms to be similar to prior episodes of DKA. Symptoms onset is acute, initially noted 3 days ago by report. Symptoms progressively worsening. Reports neglecting self in an effort to take care of her father who recently returned home from prolonged illness / rehab. Denies fever, chills, confusion / disorientation, change in vision, URI symptoms, or CP. Reports being diagnosed with a tooth infection 2-3 weeks ago for which she was prescribed a course of clindamycin. [facility] presentation and work-up Labs, 08/07 @ 1530 WBC 8.2 Hgb 13.1 Hct 39.6 Plt Na 129 K 4.9 Cl 95 Ca 8.5 CO2 10 AG 24 BUN 18 Cr 1.2 GFR 50 GLU 471 AST 19 ALT 16 Alk Phos 168 T. Bili 2.0 Lipase 20 Trop 0.04 CXR, 08/07/2018 @ 2024. No focal opacities. No pleural effusion. No pneumothorax. Cardiomediastinal contour is normal. Right PICC w/ tip over SVC. EKG, A-V paced rhythm (rate 109) Treated w/ (prior to transfer) 2L NS, insulin Patient was a difficult stick, PICC line was placed on 08/07/2018. Discharge Providers Date of admission: 08/07/18 22:20 Discharge Date: 08/09/18 Primary care physician: Yolanda Rolle DO Consults: 08/08/18 13:09 Consult to Worksite Wellness Practitioner Routine Comment: SENIOR SUPPLIER QUALITY ENGINEER- complex psychiatric and psychosocial 08/08/18 18:34 Consult to Worksite Wellness Practitioner Routine Comment: transportation upon discharge. Discharge provider: Irene Hartley DO Summary Discharge Diagnosis: 1. Acute DKA with anion gap metabolic acidosis, secondary to poorly controlled diabetes mellitus type I, present on admission. Resolved. 2. Acute symptomatic hypoglycemia, present on admission. Resolved. 3. Ashtyn intertrigo, present on admission. Improving. 4. Previous history of HFrEF. 5. History of Graves disease status post thyroidectomy with secondary hypothyroidism, chronic, present on admission. Stable. 6. History of complete heart block status post pacemaker implantation, chronic, present on admission. Stable. 7. Hyperlipidemia, chronic, present on admission. Stable. Hospital Course: Daniela Curtis is a 38-year-old female with past medical history significant for diabetes mellitus type 1, diabetic neuropathy, Graves disease status post total thyroidectomy with secondary hypothyroidism, SVT status post ablation, complete heart block status post pacemaker implantation 2016, CHF, dyslipidemia, prior history of PE/DVT, GERD, psychiatric illness with anxiety, depression and PTSD who was a direct transfer from [facility] with complaints of generalized malaise, fatigue, nausea, vomiting, and abdominal discomfort and was found to be in DKA. 1. Acute DKA with anion gap metabolic acidosis, secondary to poorly controlled diabetes mellitus type I, present on admission. Resolved. -History of diabetes mellitus type 1 with suspected poor adherence to prescribed treatment. -Hemoglobin A1c 10.9%. -Anion gap 24. -Re-initiated DKA protocol. Continue to check BMP every 4 hours for electrolyte management. Reinstitute home insulin regimen of Lantus 32 units twice daily, NovoLog 10 units 3 times daily with meals and high-dose correctional scale insulin once anion gap closes. -Initial ABG demonstrated: pH 7.24. PCO2 16.6, PO2 134, HC03 7. Repeat ABG demonstrated: PH 7.15, CO2 14.7, PO2 135, HC03 5. Sodium bicarbonate 150 mEq was initiated in addition to DKA protocol. -Complication of diabetic neuropathy and will continue amitriptyline 50 mg daily at bedtime and gabapentin 600 mg 3 times daily. -Patient complaining of lower abdominal/suprapubic pain and dysuria (1 week ago), however, urinalysis negative for infection. -Due to significant distress ordered CT abdomen and pelvis with contrast which demonstrated constipation probable constipation, uterine fibroids, enlarged h eterogeneous left ovary with cyst with recommendation of pelvic ultrasound which will need to be obtained outpatient, and low attenuation lesion within the left hepatic lobe probably represents a focal area of fatty infiltration and may consider contrast-enhanced liver MRI is recommended to exclude other abnormalities, which may be performed on an outpatient basis. 2. Acute symptomatic hypoglycemia, present on admission. Resolved. -Treated with D50, initially improved, then downward trending. Suspect accidental bolus of insulin at [facility] as there is an empty insulin bag of 100 units. -Started on D5 1/2 NS at 50 mL/hr. Patient's blood glucose level was slow to correct and then expediently became hyperglycemic and DKA protocol was re- initiated as above. Patient thought to be brittle diabetic due to lability of blood glucose levels. -Continued blood glucose checks frequently every 1 hour. -Continued to replete electrolyte abnormalities. 3. Ashtyn intertrigo, present on admission. Improving. -Continued Diflucan 150 mg x 2 doses and nystatin powder applied to area twice d aily. 4. Previous history of HFrEF. -Does not represent acute CHF exacerbation. -Echocardiogram from 04/2018 demonstrated resolution of CHF with EF 60-65% with previous EF 35-40%. -Continued home regimen of metoprolol succinate 100 mg twice daily and lisinopril 20 mg twice daily. Held lasix and spironolactone until DKA resolved. 5. History of Graves disease status post thyroidectomy with secondary hypothyroidism, chronic, present on admission. Stable. -TSH 14.80. Free T4 0.85. -Increased levothyroxine dose from 250 mcg to 275 mcg daily. Recommend repeat thyroid function testing in 4-6 weeks. 6. History of complete heart block status post pacemaker implantation, chronic, present on admission. Stable. -Patient is V paced. She was initially mildly tachycardic due to DKA but resolved with treatment of DKA. 7. Hyperlipidemia, chronic, present on admission. Stable. -Continued atorvastatin 80 mg daily. Status at Discharge Functional status at discharge: independent ambulation Overall status at discharge: patient is back to baseline Exam Vital Signs (past 8 hours): - 08/09/18 04:19 08/09/18 08:00 08/09/18 08:21 Temperature 98.6 F 97.7 F Pulse Rate 97 H 94 H 91 H Respiratory Rate 16 16 Blood Pressure 140/66 125/65 Pulse Oximetry 98 98 Oxygen Delivery Method Room Air Oxygen Flow Rate 0 Narrative Exam Narrative: General: Middle aged woman in moderate distress, well-developed, well-nourished, appears uncomfortable. HEENT: Normocephalic, atraumatic. External ears without defect. Pupils equal, round, and reactive to light. Anicteric sclerae, moist conjunctivae, and no lid lag. Neck: Supple with full range of motion. No jugular venous distension. No lymphadenopathy or thyromegaly. Cardiovascular: Regular rhythm, tachycardic, without murmurs, rubs, or gallops appreciated Pulmonary: Clear to auscultation bilaterally without crackles, wheezes, or rhonchi. Tachypneic with use of accessory muscles. Abdomen: Soft, bowel sounds present, tenderness to palpation in lower quadrant/suprapubic area, nondistended. No hepatosplenomegaly or masses appreciated. Extremities: No clubbing, cyanosis, or edema. Skin: Normal temperature, turgor, and texture; no rash, ulcers, or subcutaneous nodules appreciated. Neurological: Cranial nerves grossly intact. Psychiatric: Depressed mood with normal affect. Alert oriented to person, place and time. Objective Labs Result Diagrams: 08/09/18 04:40 08/09/18 04:40 Labs: Laboratory Results - last 24 hr 08/07/18 08/08/18 08/08/18 05:00 11:45 14:45 WBC RBC Hgb Hct MCV MCH MCHC RDW Plt Count Neut % (Auto) Lymph % (Auto) [place] % (Auto) Eos % (Auto) Baso % (Auto) Neut # (Auto) Lymph # (Auto) [place] # (Auto) Eos # (Auto) Baso # (Auto) ABG pH 7.15 L* ABG pCO2 14.7 L* ABG pO2 135 H ABG HCO3 5 L ABG Total CO2 6 L ABG O2 Saturation 98 ABG Base Excess -24.0 L FiO2 21 Sodium 138 Potassium 3.9 Chloride 114 H Carbon Dioxide 13 L BUN 12 Creatinine 0.70 Estimated GFR > 60.0 BUN/Creatinine Ratio 17.1 Glucose 88 D Calcium 7.0 L Magnesium Total Bilirubin AST ALT Alkaline Phosphatase Total Protein Albumin Globulin Albumin/Globulin Ratio Procalcitonin Free T4 0.85 08/08/18 08/09/18 08/09/18 23:10 04:40 04:40 WBC 6.7 RBC 3.59 L Hgb 11.7 L Hct 34.2 L MCV 95.3 D MCH 32.6 MCHC 34.2 RDW 14.0 Plt Count 219 Neut % (Auto) 72.5 Lymph % (Auto) 17.9 L [place] % (Auto) 8.3 Eos % (Auto) 0.5 L Baso % (Auto) 0.8 Neut # (Auto) 4900 Lymph # (Auto) 1200 [place] # (Auto) 600 Eos # (Auto) 0 Baso # (Auto) 100 ABG pH ABG pCO2 ABG pO2 ABG HCO3 ABG Total CO2 ABG O2 Saturation ABG Base Excess FiO2 Sodium 137 Potassium 3.4 Chloride 108 H Carbon Dioxide 17 L BUN 10 Creatinine 0.80 Estimated GFR > 60.0 BUN/Creatinine Ratio 12.5 Glucose 128 H Calcium 7.0 L Magnesium Total Bilirubin AST ALT Alkaline Phosphatase Total Protein Albumin Globulin Albumin/Globulin Ratio Procalcitonin 0.90 H Free T4 08/09/18 04:40 WBC RBC Hgb Hct MCV MCH MCHC RDW Plt Count Neut % (Auto) Lymph % (Auto) [place] % (Auto) Eos % (Auto) Baso % (Auto) Neut # (Auto) Lymph # (Auto) [place] # (Auto) Eos # (Auto) Baso # (Auto) ABG pH ABG pCO2 ABG pO2 ABG HCO3 ABG Total CO2 ABG O2 Saturation ABG Base Excess FiO2 Sodium 136 L Potassium 4.4 Chloride 107 Carbon Dioxide 18 L BUN 12 Creatinine 0.70 Estimated GFR > 60.0 BUN/Creatinine Ratio 17.1 Glucose 254 H D Calcium 6.7 L Magnesium 1.6 Total Bilirubin 0.7 AST 28 ALT 18 Alkaline Phosphatase 167 H Total Protein 6.3 Albumin 3.0 L Globulin 3.3 Albumin/Globulin Ratio 0.9 L Procalcitonin Free T4 Discharge Plan Discharge Plan Patient Disposition: Home Discharge comment: You're being discharged home. Please follow-up with your PCP, Dr. Rolle, at your scheduled appointment regarding your hospitalization, to discuss your liver findings and further management, and a need for referral for shirt creaser to assess your left ovary and uterine fibroids as these are likely causing or abdominal pain. Also recommend referral to endocrinology for continuous glucose monitor and further diabetic management. Your levothyroxine dose has been slightly from 250 mcg to 275 mcg daily increased and you will need repeat thyroid function testing in 4-6 weeks. Please try to take better care of yourself. Please use the resources provided to you by the social worker assistant. Discharge Med Rec/Prescriptions Prescriptions: New nystatin [Nystop] 100,000 unit/gram Powder 1 applic topical BID Qty: 1 RF: 0 Continued venlafaxine [Effexor XR] 150 MG capsule,extended release 24hr 150 mg PO QDAY Qty: 0 RF: 0 atorvastatin [Lipitor] 80 MG tablet 80 mg PO QDAY Qty: 0 RF: 0 lisinopril 10 MG tablet 10 - 20 mg PO BID Qty: 0 RF: 0 lorazepam 0.5 MG tablet 0.5 - 1 mg PO Q6HP PRN (Reason: Anxiety) Qty: 0 RF: 0 Lantus U-100 Insulin 100 unit/mL solution 32 unit SQ QDAY Qty: 0 RF: 0 amitriptyline 25 MG tablet 50 mg PO HS Qty: 0 RF: 0 digoxin [Lanoxin] 250 MCG tablet 0.25 mg PO QDAY Qty: 0 RF: 0 Eliquis 5 MG tablet 5 mg PO BID Qty: 0 RF: 0 furosemide 80 MG tablet 80 mg PO QDAY Qty: 0 RF: 0 Lantus U-100 Insulin 100 UNIT/1 ML solution 32 unit SQ BEDTIME Qty: 0 RF: 0 Novolog PenFill U-100 Insulin 100 UNIT/1 ML cartridge 1 dose subcut SLIDE Qty: 0 RF: 0 metoprolol succinate 100 MG tablet extended release 24 hr 100 mg PO BID Qty: 0 RF: 0 spironolactone 25 MG tablet 25 mg QDAY Qty: 0 RF: 0 gabapentin [Neurontin] 300 MG capsule 600 mg PO Q8H Qty: 0 RF: 0 omeprazole 20 mg PO BID RF: 0 Changed levothyroxine [Levoxyl] 175 MCG tablet 275 mcg PO QDAY Qty: 30 RF: 0 Follow up/Referrals: Yolanda Rolle DO [Primary Care Provider] - 3-5 Days (APPT:08/13 @ 9:[address] VALENZUELA (DR ROLLE IS UNAVAILABLE) PLEASE ARRIVE 15 MINUTES PRIOR TO YOUR SCHEDULED APPOINTMENT TIME) Provider Discharge Instructions Diet: Carb-consistent/Diabetic Activity: Activity as tolerated Visit Report/Discharge Packet Instructions: Taking Care of Your Diabetes When You Are Sick, DI for Diabetic Ketoacidosis, DI for Yeast Infection-Skin Discharge Data Primary Care Provider: Yolanda Rolle Attending Provider: Deandra Hu Admit Date/Time: 08/07/18 22:20 Quality VTE Deep Vein Thrombosis/Pulmonary Embolism Present on Admission: Yes
--- NOTE | 2018-08-09 12:13 | CM.DANOTE ---
DCP/Assessment: Reviewed chart. Patient is a 38yr old female admitted [facility] with [facility]. PCP is Dr. Wetzel. Primary payor is 1)Medicare 2)Medicaid. Received referral for JOY OPERATOR HELPER consult. Patient with h/o anxiety and depression also with type I diabetes. JOY OPERATOR HELPER met with patient explained CM/SW role. Patient alert and oriented at time of visit. Patient reports that she hopes to return home today. Patient initially at [facility] and was transferred for ICU care. Patient resides with her elderly father/Lazaro. Patient reports that she is currently undergoing significant life stresses. Patient is primary caregiver for her father whom just recently discharged from SNF. Patient denies suicidal ideation. Patient admits to long h/o depression and anxiety. Patient admits to her anxiety worsening recently secondary to her caring for her father. Patient resides in mobile home in [place]. Patient admits to not taking very good care of myself. Patient primarily I in ADL's and uses cane prn. Patient drives on regular basis. Patient's father on HD as outpatient 3x per week M/W/. Patient indicates that father has been home alone during patient's hospitalization. Patient reports that father got himself to HD via bus today. Patient appears relieved that her father was able to do on his own. She also reports that he cooked his own meal last night. Encouraged patient to follow up on her own health care issues. Patient made aware that she will be of no use to her father if she is unwell herself. Patient in agreement. Patient provided with resources for [employer] and senior resource guide. Patient reports that father beginning to receive meals on wheels this week. P: Home today. Patient has no method of transportation to her car in [place] today. Patient denies having any money to pay for cab. Attempted to call Medicaid transport and they report that patient is not eligible for medicaid transport. Therefore, Rachel coronado called and voucher provided. Cost approximately $70.00. KASIA Low Discharge Planning/Care Management CM Discharge Assessment Start: 08/08/18 14:58 Freq: Status: Active Protocol: Document 08/08/18 14:58 ITV (Rec: 08/08/18 15:00 [id number]) Discharge Planning Assessment Advance Directives? No Advance Directives on File No History Provided By Medical Record Prior Living Arrangements House Caregiver for Another Yes: her father just got home from [facility] and lives with her Review Status In Process Document 08/09/18 12:06 CHAVO (Rec: 08/09/18 12:13 [email or web address] [email or web address]) Discharge Planning Assessment Assigned [employer] Sewer KASIA Low Contact Information Lazaro Ruiz (Father) [phone] Advance Directives? No Advance Directives on File No History Provided By Patient Medical Record Prior Living Arrangements Mobile home Household Members family Type of transporation used prior to Drives own vehicle admit Independent with ADL's Yes Is patient alert and oriented? Yes Caregiver for Another Yes: her father just got home from [facility] and lives with her DME Already Rented / Owned Cane Barriers to Discharge No Discharge Plan Home Transportation Arrangement Patient requesting assistance with transportation. [facility] Patient reports her car is in there parking lot. Patient does not have Medicaid transport benefit. Confirmed this AM. Patient will be provided with taxi voucher ( medical relief fund) via [employer] for transport to [facility]. Whiteboard Updated in Patient Room with Yes name and ext. # of Lining [employer] Sewer Review Status In Process Next Review Type Continued Stay Review
== END 2018-08-09 13:37 | disposition home or self-care (01) | DRG 638 ==
PROVIDERS: Internal Medicine; Admitting Provider Nurse Practitioner Gerontology; Family Provider Family Medicine; PCP Family Medicine; Visit Provider Nurse Practitioner Gerontology
DX: E10.10 Type 1 diabetes mellitus with ketoacidosis without coma (principal); I50.22 Chronic systolic (congestive) heart failure; I44.2 Atrioventricular block, complete; E87.2 Acidosis; E10.40 Type 1 diabetes mellitus with diabetic neuropathy, unspecified; E89.0 Postprocedural hypothyroidism; T38.3X1A Poisoning by insulin and oral hypoglycemic [antidiabetic] drugs, accidental (unintentional), initial encounter; E09.649 Drug or chemical induced diabetes mellitus with hypoglycemia without coma; Z95.0 Presence of cardiac pacemaker; E78.5 Hyperlipidemia, unspecified; Z86.711 Personal history of pulmonary embolism; R10.30 Lower abdominal pain, unspecified; B37.2 Candidiasis of skin and nail
CPT/HCPCS: 36415; 36592; 36600; 74177; 80048; 80053; 80305; 81001; 82805; 82962; 83036; 83735; 84100; 84145; 84439; 84443; 84703; 85025; 87040; 87797; 93005; J1644; J2270; J2405; J2765; J3480; J7050; Q9967